=== PATIENT | male | born 1950 | race Caucasian/White ===

== ENCOUNTER 2019-04-15 12:32 | Emergency (ER) | payer OTHER ==
[~2019-04-15] VITALS: Ht 175.3 cm; Wt 80.0 kg
[2019-04-15 12:36] VITALS: BP 144/75
--- NOTE | 2019-04-15 13:34 | NUR ---
PT AMBULATORY WITH STEADY GAIT BACK TO ROOM FROM IMAGING. PT REQUEST
[2019-04-15] MEDS ORDERED: KETOROLAC 30 MG/1 ML IM ONE (14:00)
[2019-04-15] MEDS ORDERED: METHOCARBAMOL 750 MG TABLET PO ONE (14:00)
[2019-04-15] MEDS ORDERED: KETOROLAC 30 MG/1 ML ONE (14:28)
[2019-04-15] MEDS ORDERED: METHOCARBAMOL 750 MG TABLET ONE (14:28)
--- NOTE | 2019-04-15 15:08 | NUR ---
Patient/Caregiver given discharge instructions and they have confirmed that they understand the instructions. Patient ambulatory with steady gait. PT LEFT WITH ALL PERSONAL BELONGINGS.
== END 2019-04-15 15:09 | disposition home or self-care (01) ==
LOC: ED 15:01
DX: M54.5 Low back pain (principal); M25.511 Pain in right shoulder; I10 Essential (primary) hypertension; G89.29 Other chronic pain; W12.XXXA Fall on and from scaffolding, initial encounter; Y93.89 Activity, other specified; Y92.89 Other specified places as the place of occurrence of the external cause; Y99.8 Other external cause status
CPT/HCPCS: 70450; 72110; 72125; 96372; 99285; J1885